=== PATIENT | male | born 1960 | race Caucasian/White ===

== ENCOUNTER 2019-06-10 08:40 | Day surgery (SDC) | payer OTHER ==
[2019-06-09 11:54] VITALS: BMI 28.5
[2019-06-10] MEDS ORDERED: LIDOCAINE HCL/PF 2% SDV 5ML VIAL ONE ×2 (08:44→09:35)
[2019-06-10] MEDS ORDERED: PROPOFOL 20 ML ONE ×5 (08:44→09:35)
[2019-06-10 08:58] VITALS: TEMP 97.9
[2019-06-10 10:42] VITALS: BP 121/66; PULSE 59
--- NOTE | 2019-06-12 15:43 | PATH ---
Surgical Pathology Report Patient Name: STAN WOODS [facility]. Rec. #: [id number] /Age/Gender: 1960 (Age: 58) / M Account: [id number] Location: [facility] Taken: 06/10/2019 Received: 06/10/2019 Reported: 06/12/2019 Physicians: Bo Tucker M.D. Specimen(s) Received A: BX STOMACH B: BX ESOPHAGUS Clinical History Dysphagia, history of Caceres's Postoperative diagnosis: Gastritis, irregular Z line Final Diagnosis A. STOMACH, BIOPSY: MILD CHRONIC GASTRITIS. IMMUNOSTAIN IS NEGATIVE FOR H PYLORI ORGANISMS. B. 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 NEGATIVE FOR DYSPLASIA. Electronically Signed Jeanna Calderon M.D. Gross Description A. Received in formalin, labeled "biopsy stomach" are 2 blake, irregular portions of soft tissue measuring 0.2 and 0.4 cm. in greatest dimension. The specimens are submitted in toto in one cassette. B. Received in formalin, labeled "biopsy esophagus" are 3 blake, irregular portions of soft tissue ranging from 0.2-0.3 cm. in greatest dimension. The specimens are submitted in toto in one cassette. 06/11/2019 saudi06/11/2019
== END 2019-06-10 10:30 | disposition home or self-care (01) ==
LOC: FASU-ENDO 08:40
PROVIDERS: ATTEND Internal Medicine Gastroenterology
PROC: 0DB68ZX Excision of Stomach, Via Natural or Artificial Opening Endoscopic, Diagnostic (ICD-10-PCS; 2019-06-10)
PROC: 0DB58ZX Excision of Esophagus, Via Natural or Artificial Opening Endoscopic, Diagnostic (ICD-10-PCS; principal; 2019-06-10 09:43)
DX: K22.70 Barrett's esophagus without dysplasia (principal); K29.50 Unspecified chronic gastritis without bleeding; R13.10 Dysphagia, unspecified; Z87.19 Personal history of other diseases of the digestive system